=== PATIENT | female | born 1960 | race Caucasian/White ===

== ENCOUNTER → 2020-06-25 | Outpatient (CLI) | payer BC, OTHER ==
[~2020-06-25] MED LIST: COLACE 100MG C100 MG PO; ESCITALOPRAM OX10 MG PO; LEVOTHYROXINE25 MCG PO; LEXAPRO10 MG PO; NASONEX SPRAY 117 GM; NORCO 5-325 TA1 EACH PO; PROAIR HFA8.5 GM INH; PROTONIX 40 MG40 M1 PO; TOPROL XL 50 MG50 MG PO; VITAMIN B-121000 MCG PO; VITAMIN D31000 UNIT PO; VITAMIN D350000 UNIT PO
== END ==
LOC: KOH-I 10:27
DX: M51.16 Intervertebral disc disorders with radiculopathy, lumbar region (principal)
CPT/HCPCS: 72100

== ENCOUNTER → 2021-04-11 | Outpatient (CLI) | payer BC | LOC: CT 15:00 | DX: R10.9 Unspecified abdominal pain (principal); R74.8 Abnormal levels of other serum enzymes; K21.9 Gastro-esophageal reflux disease without esophagitis | CPT/HCPCS: Q9967 ==

== ENCOUNTER → 2021-04-11 | Outpatient (CLI) | payer BC ==
[2021-04-11 12:34] LABS: HEMOGLOBIN 13.7 gm/dl (12.3-15.3); RED BLOOD COUNT 5.27 M/UL (4.00-5.10); WHITE BLOOD COUNT 8.6 K/UL (4.5-11.0)
[2021-04-11 13:15] LABS: BUN/CREATININE RATIO 12 (0-10)
== END ==
LOC: LAB 12:07
PROVIDERS: Physician Assistant
DX: R10.9 Unspecified abdominal pain (principal)
CPT/HCPCS: 36415; 80048; 80076; 82150; 83690; 85025

== ENCOUNTER → 2021-12-02 | Day surgery (SDC) | payer OTHER ==
[~2021-12-02] MED LIST changes: +CLARITIN10 M2 PO; +PRILOSEC OTC20 MG PO; +VITAMIN D3125 MCG PO
== END | disposition home or self-care (01) ==
LOC: OR 06:03
DX: Z12.11 Encounter for screening for malignant neoplasm of colon (principal); D12.2 Benign neoplasm of ascending colon; K57.30 Diverticulosis of large intestine without perforation or abscess without bleeding; Z86.010 Personal history of colon polyps; E78.5 Hyperlipidemia, unspecified; K21.9 Gastro-esophageal reflux disease without esophagitis; E03.9 Hypothyroidism, unspecified; M85.80 Other specified disorders of bone density and structure, unspecified site; F41.9 Anxiety disorder, unspecified; Z88.0 Allergy status to penicillin; Z88.1 Allergy status to other antibiotic agents; Z79.899 Other long term (current) drug therapy
CPT/HCPCS: J2704